=== PATIENT | female | born 1990 | race Caucasian/White ===

== ENCOUNTER 2017-06-18 15:04 | Emergency (ER) | payer OTHER ==
[2017-06-18 15:08] VITALS: BP 114/75; TEMP 98.5; BMI 31.8
--- NOTE | 2017-06-18 15:18 | ED.PDOC ---
General ED Provider: Dr. TAWNY OSMAN-ER Chief Complaint: Respiratory Complaint Stated Complaint: ramiro got green sinus congestion and cough green sputum Time Seen by Physician: 15:16 Mode of Arrival: Walk-In Information Source: Patient Exam Limitations: No limitations Primary Care Provider: ERIC HORTON Nursing and Triage Documentation Reviewed and Agree: Yes Reviewed sepsis parameters & appropriate labs ordered?: Yes System Inflammatory Response Syndrome: Not Applicable Sepsis Protocol: For patient's 13 years and over: Temp is 96.8 and below OR 101 and greater Pulse >90 BPM Resp >20/minute Acutely Altered Mental Status Are patient's symptoms suggestive of a new infection, such as: -Pneumonia -Skin, Soft Tissue -Endocarditis -UTI -Bone, Joint Infection -Implantable Device -Acute Abdominal Infection -Wound Infection -Meningitis -Blood Stream Catheter Infection -Unknown Respiratory Complaint Exam - Respiratory Complaint/Exam Onset/Duration: 1 week Symptoms Are: Still present Timing: Constant Initial Severity: Mild Current Severity: Moderate Location: Nose, Chest Character: Reports: Productive cough Aggravating: Reports: URI Alleviating: Reports: None Associated Signs and Symptoms: Reports: URI, Nasal congestion, Sore throat. Denies: Rapid breathing, Dyspnea, Fever, Chills, Chest pain, Pleuritic chest pain, Wheezing, Hemoptysis, Dizziness, Calf pain, Calf swelling, Edema, Hoarseness, Sinus discomfort, Vomiting, Weight loss, Decreased oral intake, Increased appetite, Increased urination Related History: Reports: Similar episode History of Healthcare-Acquired Pneumonia: No Home Oxygen Use: No Recent Stress Test: No Recent Echo/LV Function: No Current Antibiotic Use: No Current Asthma Medication Use: No Respiratory Distress: None Inadequate Respiratory Effort: No Dysphagia Present: No Stridor Present: No JVD Present: No Accessory Muscle Use: No Retractions: Not Present Diminished Breath Sounds: No Sinus Tenderness: Maxillary Grunting Respirations: No Kussmaul Respirations: No Differential Diagnoses: Bronchitis, Sinusitis, URI Review of Systems - Review Of Systems Constitutional: Reports: No symptoms Eyes: Reports: No symptoms Ears, Nose, Mouth, Throat: Reports: No symptoms, Nose discharge Respiratory: Reports: Cough Cardiac: Reports: No symptoms GI: Reports: No symptoms : Reports: No symptoms Musculoskeletal: Reports: No symptoms Skin: Reports: No symptoms Neurological: Reports: No symptoms Endocrine: Reports: No symptoms Hematologic/Lymphatic: Reports: No symptoms All Other Systems: Reviewed and Negative Past Medical History - Past Medical History Previously Healthy: No Endocrine: Reports: Unknown Cardiovascular: Reports: Unknown Respiratory: Reports: Unknown Hematological: Reports: Unknown Gastrointestinal: Reports: Unknown Genitourinary: Reports: Unknown Neuro/Psych: Reports: Unknown Musculoskeletal: Reports: Unknown Cancer: Reports: Unknown Last Menstrual Period: 05/23/17 - Surgical History General Surgical History: Reports: Unknown - Family History Family History: Reports: Unknown - Social History Smoking Status: Current every day smoker Hx Substance Use: No Alcohol Screening: Occasionally Physical Exam - Physical Exam Appearance: Well-appearing, No pain distress, Well-nourished Eyes: NOAH, EOMI, Conjunctiva clear ENT: Rhinorrhea Neck: Supple Respiratory: Rhonchi Cardiovascular: RRR, Pulses normal, No rub, No murmur GI/: Soft, Nontender, No masses, Bowel sounds normal, No Organomegaly Musculoskeletal: Normal strength, ROM intact, No edema, No calf tenderness Skin: Warm, Dry, Normal color Neurological: Sensation intact, Motor intact, Reflexes intact, Cranial nerves intact, Alert, Oriented Psychiatric: Affect appropriate, Mood appropriate Critical Care Note - Critical Care Note Total Time (mins): 0 Course - Course Vital Signs: Temp Pulse Resp BP Pulse Ox 06/18/17 15:04 98.5 F 91 H 16 114/75 98 Departure - Departure Time of Disposition: 15:18 Disposition: HOME SELF-CARE Discharge Problem: Bronchitis Sinusitis Qualifiers: Sinusitis location: unspecified location Chronicity: acute Recurrence: non- recurrent Qualified Code(s): J01.90 - Acute sinusitis, unspecified Instructions: Acute Bronchitis (ED) Condition: Good Pt referred to PMD for follow-up: Yes IPMP verified?: No Additional Instructions: biaxin 500mg bid x 10 days--tessalon perles 200mg tid prn cough#30--off work for 48hrs--recheck with pcp in 48-72hrs Allergies/Adverse Reactions: Allergies No Known Allergies Allergy (Unverified 06/18/17 15:07) Home Medications: Ambulatory Orders 1 [No Reported Medications] 06/18/17 Disposition Discussed With: Patient, Family
== END 2017-06-18 15:24 | disposition home or self-care (01) ==
LOC: ED 15:04
DX: J20.9 Acute bronchitis, unspecified (principal); J01.90 Acute sinusitis, unspecified; F17.210 Nicotine dependence, cigarettes, uncomplicated
CPT/HCPCS: 99282

== ENCOUNTER 2017-06-19 20:04 | Emergency (ER) ==
[2017-06-19 20:04] VITALS: BMI 31.8
[2017-06-19 20:08] VITALS: BP 120/80; TEMP 98.6
[2017-06-19] MEDS ORDERED: PHENERGAN 25 MG/ML VIAL 25 MG in SODIUM CHLORIDE 50 ML IV STA (20:14)
[2017-06-19] MEDS ORDERED: DILAUDID 1 MG/ML SYRINGE IVP STA (20:14)
[2017-06-19] MEDS ORDERED: SODIUM CHLORIDE 1,000 ML IV STA (20:14)
[2017-06-19] MEDS ORDERED: PROTONIX IV IVP STA (20:15)
[2017-06-19] MEDS ORDERED: PHENERGAN 25 MG/ML VIAL ONE (20:27)
--- NOTE | 2017-06-19 21:34 | CT ---
Exam: CT abdomen pelvis without intravenous contrast. Comparison: None available. Reason for exam: Epigastric pain. FINDINGS: No pleural effusion, or focal consolidation in the partially imaged lung bases. The gallbladder has been removed. No intra-abdominal free air or pelvic free fluid. The liver, spleen, adrenal glands, and pancreas appear grossly unremarkable within limitations of a n oncontrasted study. No hydronephrosis, hydroureter, or nephrolithiasis in either kidney. The bladder appears grossly unremarkable. Fluid-filled loops of small bowel are seen throughout the abdomen without focal bowel dilatation or t ransition point. The appendix is unremarkable. Pelvic structures appear grossly unremarkable. No inflammatory changes are seen in the abdominal or pelvic fat. No suspicious appearing osteoblastic or osteolytic lesions. Impression: 1. No acute inflammatory findings are seen within the abdomen or pelvis. 2. Fluid-filled loops of small bowel can be seen physiologically but may also represent enteritis. 3. The gallbladder has been removed. Were faxed at 2030 hours on 06/19/2017.
--- NOTE | 2017-06-19 21:58 | ED.PDOC ---
General ED Provider: Dr. TAWNY OSMAN-ER Chief Complaint: Abdominal Pain Stated Complaint: im hurting--i started biaxin yesterday Time Seen by Physician: 20:05 Mode of Arrival: Walk-In Information Source: Patient Exam Limitations: No limitations Primary Care Provider: ERIC HORTON Nursing and Triage Documentation Reviewed and Agree: Yes Reviewed sepsis parameters & appropriate labs ordered?: Yes System Inflammatory Response Syndrome: Not Applicable Sepsis Protocol: For patient's 13 years and over: Temp is 96.8 and below OR 101 and greater Pulse >90 BPM Resp >20/minute Acutely Altered Mental Status Are patient's symptoms suggestive of a new infection, such as: -Pneumonia -Skin, Soft Tissue -Endocarditis -UTI -Bone, Joint Infection -Implantable Device -Acute Abdominal Infection -Wound Infection -Meningitis -Blood Stream Catheter Infection -Unknown GI Complaint Exam - Abdominal Pain Complaint/Exam Onset: Gradual Duration: one week Symptoms Are: Still present Timing: Constant Initial Severity: Mild Current Severity: Moderate Location of Pain: Epigastric Radiates To: Reports: Back Character: Reports: Dull, Aching Alleviating: Reports: None Associated Signs and Symptoms: Reports: Nausea Related Surgical History: Reports: Cholecystectomy Patient Rh Status: Unknown Abdominal Findings: Present: None Differential Diagnoses: Constipation, Pancreatitis Quality Indicator For Non-Traumatic Chest Pain/Syncope: EKG Performed Review of Systems - Review Of Systems Constitutional: Reports: No symptoms Eyes: Reports: No symptoms Ears, Nose, Mouth, Throat: Reports: No symptoms Respiratory: Reports: No symptoms, Other Cardiac: Reports: No symptoms GI: Reports: Abdominal pain, Nausea : Reports: No symptoms Musculoskeletal: Reports: No symptoms Skin: Reports: No symptoms Neurological: Reports: No symptoms Endocrine: Reports: No symptoms Hematologic/Lymphatic: Reports: No symptoms All Other Systems: Reviewed and Negative Past Medical History - Past Medical History Previously Healthy: No Endocrine: Reports: Unknown Cardiovascular: Reports: Unknown Respiratory: Reports: Unknown Hematological: Reports: Unknown Gastrointestinal: Reports: Unknown Genitourinary: Reports: Unknown Neuro/Psych: Reports: Unknown Musculoskeletal: Reports: Unknown Cancer: Reports: Unknown Last Menstrual Period: may - Surgical History General Surgical History: Reports: Unknown - Family History Family History: Reports: Unknown - Social History Smoking Status: Current every day smoker Hx Substance Use: No Alcohol Screening: Occasionally Physical Exam - Physical Exam Appearance: Well-appearing, No pain distress, Well-nourished Eyes: NOAH, EOMI, Conjunctiva clear ENT: Ears normal, Nose normal, Oropharynx normal Neck: Supple Respiratory: Airway patent, Breath sounds clear, Breath sounds equal, Respirations nonlabored Cardiovascular: RRR, Pulses normal, No rub, No murmur GI/: Soft, Nontender, No masses, Bowel sounds normal, No Organomegaly Musculoskeletal: Normal strength, ROM intact, No edema, No calf tenderness Skin: Warm, Dry, Normal color Neurological: Sensation intact, Motor intact, Reflexes intact, Cranial nerves intact, Alert, Oriented Psychiatric: Affect appropriate, Mood appropriate Interpretation - Radiology Interpretation Radiology Interpretation By: Radiologist Radiology Results: Negative Exam Interpreted: CT Scan - EKG Interpretation Time of EKG #1: 21:57 Rate: Normal Rhythm: Sinus Ectopy: None [place]: NL ST Segment: Normal Interpretation: nsr Re-Evaluation - Re-Evaluation Time of Re-Evaluation: 21:58 Status: Improved Vital Signs Stable: Yes Pain Level: 0 Appearance: NAD Lungs: Clear Skin: Warm and Dry Neuro: Alert and Oriented X3 CV: RRR Critical Care Note - Critical Care Note Total Time (mins): 0 Course - Course Hematology/Chemistry: 06/19/17 20:23 06/19/17 20:23 Orders, Labs, Meds: Lab Review 06/19/17 06/19/17 06/19/17 20:23 20:23 20:23 WBC 7.59 RBC 4.14 L Hgb 13.6 Hct 37.6 MCV 90.8 MCH 32.9 H MCHC 36.2 H RDW Coeff of Dina 11.7 Plt Count 239 Immature Gran % (Auto) 0.7 Neut % (Auto) 57.6 Lymph % (Auto) 31.2 [place] % (Auto) 8.4 Eos % (Auto) 1.7 Baso % (Auto) 0.4 Immature Gran # (Auto) 0.1 Neut # (Auto) 4.4 Lymph # (Auto) 2.4 [place] # (Auto) 0.6 Eos # (Auto) 0.1 Baso # (Auto) 0.0 Sodium 137 Potassium 3.3 L Chloride 103 Carbon Dioxide 21 Anion Gap 16.3 BUN 6 L Creatinine 0.80 Estimated GFR (MDRD) 85.00 BUN/Creatinine Ratio 7.50 Glucose 94 Calcium 9.2 Total Bilirubin 0.6 AST 17 ALT 19 Alkaline Phosphatase 90 Total Protein 7.3 Albumin 3.7 Globulin 3.6 Albumin/Globulin Ratio 1.03 Amylase 34 Lipase 14 Serum , Qual Negative Orders Category Date Time Status EKG-(ED ONLY) Stat CARDIO 06/19/17 20:14 Completed ED IV/MEDIPORT/POWERPORT .ONCE EMERGENCY 06/19/17 20:14 Active AMYLASE Stat LAB 06/19/17 20:23 Completed CBC W/ AUTO DIFF Stat LAB 06/19/17 20:23 Completed COMPREHENSIVE METABOLIC PANEL Stat LAB 06/19/17 20:23 Completed LIPASE Stat LAB 06/19/17 20:23 Completed SERUM Stat LAB 06/19/17 20:23 Completed URINALYSIS C & S IF INDICATED Stat LAB 06/19/17 21:41 Received 0.9 % Sodium Chloride [Saline Flush] MEDS 06/19/17 20:14 Ordered 1 syr IVF PRN PRN Hydromorphone HCl [Dilaudid 1 mg/ml Syringe] MEDS 06/19/17 20:14 Discontinued 1 mg IVP ONCE STA Pantoprazole Sodium [Protonix IV] MEDS 06/19/17 20:15 Discontinued 40 mg IVP ONCE STA Promethazine HCl [Phenergan 25 mg/ml Vial] MEDS 06/19/17 20:27 Discontinued 25 mg .ROUTE .STK-MED ONE Promethazine HCl [Phenergan 25 mg/ml Vial] 25 mg MEDS 06/19/17 20:14 Discontinued 0.9 % Sodium Chloride [Sodium Chloride] 50 ml IV ONCE Sodium Chloride 0.9% [Sodium Chloride] 1,000 ml MEDS 06/19/17 20:[address] ABDOMEN/PELVIS WO CONTRAST Stat RADS 06/19/17 20:15 Completed Medications Generic Name Dose Route Start Last Admin Trade Name Freq PRN Reason Stop Dose Admin Sodium Chloride 1 syr 06/19/17 20:14 06/19/17 20:50 Saline Flush IVF 1 syr PRN PRN Administration To flush IV Discontinued Medications Generic Name Dose Route Start Last Admin Trade Name Freq PRN Reason Stop Dose Admin Hydromorphone HCl 1 mg 06/19/17 20:14 06/19/17 20:49 Dilaudid 1 Mg/Ml Syringe IVP 06/19/17 20:15 1 mg ONCE STA Administration Promethazine HCl 25 mg/ Sodium 51 mls @ 75 mls/hr 06/19/17 20:14 06/19/17 20: 47 Chloride IV 06/19/17 20:54 75 mls/hr ONCE STA Administration Sodium Chloride 1,000 mls @ 1,000 mls/hr 06/19/17 20:14 06/19/17 21:29 Sodium Chloride IV 06/19/17 21:13 1,000 mls/hr BOLUS STA Administration Pantoprazole Sodium 40 mg 06/19/17 20:15 06/19/17 20:47 Protonix Iv IVP 06/19/17 20:16 40 mg ONCE STA Administration Vital Signs: Temp Pulse Resp BP Pulse Ox 06/19/17 20:04 98.6 F 92 H 20 120/80 99 Departure - Departure Time of Disposition: 21:58 Disposition: HOME SELF-CARE Discharge Problem: Abdominal pain Instructions: Acute Abdominal Pain (ED) Condition: Good Pt referred to PMD for follow-up: No IPMP verified?: No Additional Instructions: stop biaxin--keflex 500mg bid x 7 days Allergies/Adverse Reactions: Allergies No Known Allergies Allergy (Verified 06/19/17 20:08) Home Medications: Ambulatory Orders 1 [No Reported Medications] 06/18/17 Disposition Discussed With: Patient, Family
== END 2017-06-19 22:45 | disposition home or self-care (01) ==
LOC: ED 20:04
DX: R10.13 Epigastric pain (principal); F17.210 Nicotine dependence, cigarettes, uncomplicated
CPT/HCPCS: 36415; 80053; 81001; 82150; 83690; 84703; 85025; 93005; 93010; 96361; 96365; 96375; 99283